=== PATIENT | female | born 1960 | race Caucasian/White ===

== ENCOUNTER → 2017-02-24 | Outpatient (CLI) | payer BC ==
[~2017-02-24] MED LIST: ASPI325T8 PO; FLUO20TA11 PO; LEVO100T PO
--- NOTE | 2017-02-24 15:00 | KCIC ---
Chest, PA and Lateral: Technique: PA and lateral views of the chest were obtained. History: Persistent cough for 3 weeks. Comparison: None. Findings: The heart and pulmonary vasculature appear within normal limits. The lungs are clear. The pleural margins are clear. Impression: No acute chest process is seen. Electronically signed by: Bryant Zuñiga MD (02/24/2017 2:55 PM) [id number]
== END | disposition home or self-care (01) ==
LOC: KCIC 14:05
PROVIDERS: ATTEND Nurse Practitioner Family
DX: R05 Cough (principal)
CPT/HCPCS: 71020

== ENCOUNTER → 2017-10-27 | Outpatient (CLI) | payer BC | END | disposition home or self-care (01) | LOC: KCIC 15:33 | DX: M79.662 Pain in left lower leg (principal); R22.42 Localized swelling, mass and lump, left lower limb | CPT/HCPCS: 73590 ==

== ENCOUNTER → 2017-11-05 | Outpatient (CLI) | payer BC ==
[2017-11-05] MEDS: GADOBUTROL 7.5 MMOL/7.5 ML VIAL IV (15:37)
== END | disposition home or self-care (01) ==
LOC: KCIC MRI 14:40
DX: M79.89 Other specified soft tissue disorders (principal); M79.605 Pain in left leg
CPT/HCPCS: 73720; A9585

== ENCOUNTER → 2019-01-06 | Outpatient (CLI) | payer BC, OTHER ==
--- NOTE | 2019-01-06 14:35 | KCIC ---
EXAM: Dual energy x-ray absorptiometry (DEXA). HISTORY: Postmenopausal female presents for osteoporosis screening. COMPARISON: None. TECHNIQUE: Dual energy x-ray absorptiometry of the lumbar spine and left hip was performed. Calculation of bone mineral density based on standard deviations above or below the expected young adult normal value (T-score) was completed. FINDINGS: The average bone mineral density in the 1st through 4th lumbar vertebrae is 1.057 g/cmxcm, corresponding with a T-score of 0.1. The average total bone mineral density in the left hip is 0.901 g/cmxcm, corresponding with a T-score of -0.3. IMPRESSION: Normal bone mineral density. Note: Definitions established by the World Health Organization: 1. Normal: T-score is -1.0 or above. 2. Osteopenia: T-score is between -1.0 and -2.5 . 3. Osteoporosis: T-score is -2.5 or below. Electronically signed by: Lamar López MD (01/06/2019 2:32 PM) [place] [id number]
--- NOTE | 2019-01-06 16:23 | KCIC ---
Bilateral digital screening mammograms with 3-D tomosynthesis: Reason for examination: Routine screening. New baseline. Bilateral mammograms in CC and oblique projections were obtained with 2-D imaging and 3-D tomosynthesis imaging on a Siemens Inspiration unit and reviewed on the workstation. Interpretation was made with the benefit of CAD. The skin and nipples show no abnormalities. No abnormal axillary lymph nodes are seen. The breast parenchyma shows scattered fatty and fibroglandular density. (Breast density: Category B.) There appears to be some nodularity in the subareolar position of the right breast which may represent cystic ductal ectasia. There is also a small nodular density at approximately the central 3:00 B position of the left breast. Further evaluation with ultrasound is recommended. There are no other dominant masses, suspicious calcifications or architectural distortion. Impression: Small nodular parenchymal densities bilaterally. Bilateral breast ultrasound follow-up is recommended. BI-RADS Category 0: Incomplete. Needs additional imaging evaluation. "Our facility is accredited by the [employer] Mammography [employer]." This patient's information has been entered into a reminder system for the patient to be notified with the results of her examination and a target date for the next mammogram. Electronically signed by: Naye Espinoza MD (01/06/2019 4:20 PM) [id number]
== END | disposition home or self-care (01) ==
LOC: KCIC DEXA 13:29
PROVIDERS: ATTEND Nurse Practitioner Family
DX: Z12.31 Encounter for screening mammogram for malignant neoplasm of breast (principal); Z78.0 Asymptomatic menopausal state
CPT/HCPCS: 77063; 77067; 77080

== ENCOUNTER → 2019-01-21 | Outpatient (CLI) | payer OTHER ==
--- NOTE | 2019-01-21 17:01 | KCIC ---
Bilateral breast ultrasound: Reason for examination: Nodularity bilaterally on screening mammogram. Comparison is made to mammographic exam dated 01/06/2019. Ultrasound examination was performed bilaterally in the areas of mammographic concern and at the axilla. In the right breast, there is ductal ectasia in the retroareolar position with no intraductal lesions evident and no other cystic or solid nodules seen. No abnormal appearing lymph nodes are seen in the right axilla. In the left breast at the 3:00 position 6 cm from the nipple, there is a 6.6 x 6.9 mm fibrocystic lesion in parallel orientation. No other cystic or solid lesions are seen and no abnormal appearing lymph nodes are seen in the left axilla. 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 Small 6.9 mm fibrocystic lesion at the 3:00 position of the left breast. Recommend 6 month follow-up ultrasound of the left breast. BI-RADS Category 3: Probably Benign. "Our facility is accredited by the [employer] Mammography [employer]." This patient's information has been entered into a reminder system for the patient to be notified with the results of her examination and a target date for the next mammogram. Electronically signed by: Naye Espinoza MD (01/21/2019 4:58 PM) [id number]
== END | disposition home or self-care (01) ==
LOC: KCIC US 09:49
PROVIDERS: ATTEND Nurse Practitioner Family
DX: N60.41 Mammary duct ectasia of right breast (principal); N64.89 Other specified disorders of breast
CPT/HCPCS: 76641